=== PATIENT | female | born 1970 | race Caucasian/White ===

== ENCOUNTER 2021-08-10 11:53 | Inpatient (IN) | payer OTHER ==
[~2021-08-10 11:53] MED LIST: CHLORTHALIDONE50 MG PO
[2021-08-10 13:44] LABS: BASOPHIL 0.7 % (0-2); EOSINOPHIL 0 % (0-5); HCT 36.1 % (37.0-47.0); HGB 11.6 g/dl (12.5-16.0); LYMPHOCYTE 8.1 % (15-48); MCH 33.6 pg (25.0-31.0); MCHC 32.1 g/dL (32.0-36.0); MCV 104.6 fL (78.0-100.0); MONOCYTE 4.3 % (0-12); MPV 8.4 fL (6.0-9.5); NEUTROPHIL 85.4 % (41-80); NRBC 0; PLT 474 K/uL (150-400); RBC 3.45 M/uL (4.20-5.40); RDW 13.6 % (11.5-14.0)
[2021-08-10 14:22] LABS: BUN/CREAT RATIO (CALC) 6.9 RATIO; CREATININE 0.58 mg/dL (0.51-0.95); POTASSIUM 3.9 mmol/L (3.5-5.1)
[2021-08-10 14:31] LABS: CORONAVIRUS 2019 SARS-COV-2 NEGATIVE (NEGATIVE); INFLUENZA A NAA NEGATIVE (NEGATIVE)
== END 2021-08-10 20:03 | disposition left against medical advice (07) | DRG 190 ==
LOC: FER 11:53 → FMS 17:31
PROVIDERS: Emergency Medicine; Nurse Practitioner Family; ADMIT Internal Medicine
DX: J44.1 Chronic obstructive pulmonary disease with (acute) exacerbation (principal); J18.9 Pneumonia, unspecified organism; E87.3 Alkalosis; J98.11 Atelectasis; E87.1 Hypo-osmolality and hyponatremia; Z20.822 Contact with and (suspected) exposure to COVID-19; J44.0 Chronic obstructive pulmonary disease with (acute) lower respiratory infection; R09.02 Hypoxemia; M32.9 Systemic lupus erythematosus, unspecified; M06.9 Rheumatoid arthritis, unspecified; I10 Essential (primary) hypertension; E03.9 Hypothyroidism, unspecified; E78.5 Hyperlipidemia, unspecified; F17.200 Nicotine dependence, unspecified, uncomplicated; Z90.711 Acquired absence of uterus with remaining cervical stump; Z79.899 Other long term (current) drug therapy
CPT/HCPCS: 36415; 36600; 71045; 80048; 82803; 84484; 85025; 93005; 94010; 94640; 94664; 94762; J0456; J0696; J2930; J7050; U0002